=== PATIENT | male | born 1945 | race African-American/Black ===

== ENCOUNTER 2016-12-28 10:50 | Observation (INO) ==
[2016-12-28] MEDS ORDERED: ASPIRIN 325 MG TABLET PO STA (11:42)
--- NOTE | 2016-12-28 11:55 | EKG Report ---
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
--- NOTE | 2016-12-28 12:15 | XRay Report ---
XR chest 1V portable Indication: Chest pain Comparison: None Technique: Single frontal view of the chest. Findings: Heart size within normal limits. Chronic/granulomatous change without focal consolidation, pleural effusion, or pneumothorax. Visualized osseous and surrounding soft tissue structures demonstrate no acute abnormality. IMPRESSION: No acute cardiopulmonary process demonstrated. PROCEDURE INTERPRETED AT [facility] DEPARTMENT OF RADIOLOGY Final Report Signed by: Dr Dalton Metzger
[2016-12-28 12:21] LABS: Basophils % 0.6 % (0.0-0.8); Eosinophils # 0.1 10*3/uL (0.0-0.87); Eosinophils % 0.8 % (0.00-10.9); Hematocrit 41.3 VOL% (42.0-52.0); Hemoglobin 14.6 GM/DL (14.0-18.0); Immature Granulocytes % 0.8 %; Immature Granulocytes Absolute 0.05 #; Lymphocytes # 1.5 10*3/uL (1.4-4.0); Lymphocytes % 23.8 % (21.2-54.2); Mean Corpuscular HGB Conc 35.4 GM/DL (32-36); Mean Corpuscular Hemoglobin 31 PG (27-34); Mean Corpuscular Volume 88.6 FL (87-102); Mean Platelet Volume 9.9 FL (9.6-12.0); Monocytes # 0.6 10*3/uL (0.11-0.8); Monocytes % 9.6 % (1.7-12.7); Neutrophils % 64.4 % (38.7-73.9); Platelet Count 185 T/CUMM (130-400); Red Blood Count 4.66 MC/CUMM (3.8-5.5); Red Cell Distribution Width 12.3 % (9.3-17.3); White Blood Count 6.3 T/CUMM (4-12)
[2016-12-28 12:29] LABS: PT Patient Result 10.7 SECS
[2016-12-28] MEDS ORDERED: ASPIRIN 325 MG TABLET ONE (12:29)
[2016-12-28 12:48] LABS: Albumin 3.8 G/DL (3.4-5.0); Bilirubin,Total 0.9 MG/DL (0.2-1.0); Osmolality,Calculated 274.7 MOS/KG (273-304); Potassium 3.3 MMOL/L (3.5-5.1); Total Protein 7.8 G/DL (6.4-8.3)
--- NOTE | 2016-12-28 13:35 | Emergency Department Note ---
Risa Milian Hilary, am scribing for, and in the presence of, Darren Noyola MD 11:42. Jazmín Milian Phillip K, MD, personally performed the services described in this documentation, ascribed by Sury Lord in my presence, and it is both accurate and complete 335 . Arrival - Arrival Chief Complaint: Abdominal / Flank Pain Stated Complaint: chest pain, SOB ED Nursing Triage Note: C/o abdominal fullness and nausea-onset 10/25/16. States he has been seeing Dr. Marinelli for same c/o and was dx with h pylori. Reports that is is hard for him to breathe when he bends over. Reports that he thinks he is constipated. Mode of Arrival: Ambulatory Limitations: No Limitations Source: Patient, RN Notes Reviewed Time Seen by Provider: 12/28/16 11:23 - History of Present Illness HPI Narrative: Pt is a 71 y/o male presenting to the ED with c/o sob which onset a 2 days ago. Pt states that he had pressure in chest yesterday which caused him to feel light headed and nauseous. Pt denies any medical issues with his heart. He confirms pressure in his chest, weakness, light headed, nausea and SOB but denies fever, cough or abdominal pain. No other complaints or problems stated in the ED. He adds that he has been seeing Dr. Marinelli for same c/o and was dx with h pylori. Onset (ago): day(s) Consistency: constant Severity: moderate Severity scale (1-10): 2 Allergies/Adverse Reactions: Allergies Allergy/AdvReac Type Severity Reaction Status Date / Time No Known Allergies Allergy Verified 12/28/16 11:03 Home Medications: Home Medications Medication Instructions Recorded Confirmed Type Amlodipine Besylate/Benazepril 1 each PO DAILY 12/28/16 12/28/16 History [Amlodipine-Benazepril 5-20 mg] Terazosin HCl 5 mg PO BEDTIME 12/28/16 12/28/16 History Review of System - Review of System 12 point system: reviewed and no additional remarkable complaints except as stated - Review of System Constitutional: Present: weakness. Absent: fever Respiratory: Present: respiratory distress (SOB). Absent: cough Cardiovascular: Present: chest pain Gastrointestinal: Absent: abdominal pain Neurological: Present: weakness Medical,Surgical,& Family Hx - Medical History Cardio: History of: Hypertension - Social History Smoking Status: Never smoker Frequency of Alcohol Use: None Type of Drug Use: None Exam Vital Signs: Vital Signs Temperature 98.2 F 12/28/16 11:19 Pulse Rate 64 12/28/16 13:00 Respiratory Rate 18 12/28/16 13:00 Blood Pressure 139/94 12/28/16 13:00 O2 Sat by Pulse Oximetry 97 12/28/16 13:00 - General General appearance: alert, in no apparent distress - Head Head exam: Present: atraumatic, normocephalic - Eye Eye exam: Present: normal appearance, PERRL, EOMI - ENT ENT exam: Present: mucous membranes moist, TM's normal bilaterally. Absent: mucous membranes dry - Neck Neck exam: Present: full ROM, trachea midline. Absent: tenderness - Chest Chest inspection: Present: symmetric chest wall rise. Absent: tenderness - Respiratory Respiratory exam: Present: normal lung sounds bilaterally. Absent: respiratory distress - Cardiovascular Cardiovascular exam: Present: regular rate, irregular rhythm, normal heart sounds. Absent: murmur, rubs, gallop - Abdominal Exam Abdominal exam: Present: soft, normal bowel sounds. Absent: distention, tenderness - Extremities Exam Extremities exam: Present: full ROM. Absent: tenderness - Back Exam Back exam: Present: full ROM. Absent: tenderness - Neurological Exam Neurological exam: Present: alert, oriented X3, CN II-XII intact. Absent: motor sensory deficit - Psychiatric Psychiatric exam: Present: normal affect, normal mood - Skin Skin exam: Present: warm, dry, intact, normal color. Absent: rash Course Course Narrative: Patient discussed with the hospitalist. Results - Labs CBC & BMP: 12/28/16 11:59 12/28/16 11:59 Lab Results: I have reviewed the patients labs Labs: Laboratory Tests 12/28/16 12/28/16 11:59 11:59 WBC 6.3 RBC 4.66 Hgb 14.6 Hct 41.3 L Plt Count 185 INR 1.0 PT Patient/Control Mix 10.7 Laboratory Tests 12/28/16 12/28/16 11:59 11:59 Sodium 138 Potassium 3.3 L Chloride 105 Carbon Dioxide 28 Glucose 108 H Troponin I < 0.015 Total Protein 7.8 Globulin 4.0 H Albumin/Globulin Ratio 0.9 L Laboratory Tests 12/28/16 11:59 B-Natriuretic Peptide 6 - EKG EKG results: interpreted by ERMD, sinus rhythm (PVCs, nonspecific ST-T changes) - Diagnostic Findings Procedure: Chest x-ray: report reviewed by me (No acute cardiopulmonary process demonstrated) Disposition Clinical Impression: Chest pain, Possible angina Case discussed with: patient Disposition: Still a Patient Condition: Guarded Additional Instructions: Admit to the hospitalist
--- NOTE | 2016-12-28 16:38 | Hospitalist History & Physical ---
<Jerod Lindsey - Last Filed: 12/28/16 16:32> Assessment and Plan - Time spent with patient Time spent with patient: Greater than 30 minutes (1) Chest pain Status: Acute Assessment and plan: EKG, chest x-ray enzymes are negative. Given the patient's age and history of hypertension, he will be admitted for observation. We have ordered an echocardiogram and cardiology consultation for possible stress test in a.m. Current Visit: Yes (2) Hypertension Status: Acute Assessment and plan: Continue home meds. Current Visit: Yes (3) Anxiety Status: Acute Current Visit: Yes History of Present Illness Chief complaint: Chest pain History of present illness: Mr. Bernard is a 71 year old male with a past medical history significant for hypertension who presents to the ED today with complaints of chest pressure on exertion with onset 4 days ago. Patient reports that he was scheduled to have an MRI on last Wednesday by his primary care doctor. Once he arrived at the MRI Center he found himself anxious about having the procedure time. He describes a nervous sweating with associated nausea and vomiting. He notes that this anxiety continued throughout the weekend even when he was take a shower he felt like the ferrari are closing in on him presents to the ED today with the same complaints and a tightness in his chest. He denies any history of heart disease, myocardial infarction, tobacco use. Cardiac enzymes are negative. Chest x-ray is negative for any acute process. Patient's daughter is at bedside and notes that the patient is recently retired and has been anxious about not having any work lately. This may very well be a case of anxiety, however, given the patient's age and history of hypertension he will be prudent to admit him for observation and thorough cardiac workup. Case has been discussed with Dr. Ambrosio and the patient will be admitted for observation and further evaluation. He is listed as a full code. Home meds have been reviewed and reconciled. Home Medications Medication Instructions Recorded Confirmed Type Amlodipine Besylate/Benazepril 1 each PO DAILY 12/28/16 12/28/16 History [Amlodipine-Benazepril 5-20 mg] Terazosin HCl 5 mg PO BEDTIME 12/28/16 12/28/16 History Allergies Allergy/AdvReac Type Severity Reaction Status Date / Time No Known Allergies Allergy Verified 12/28/16 11:03 Medical,Surgical,& Family Hx - Medical History Cardio: History of: Hypertension Gastrointestinal: History of: GI Problems (H pyloria) - Family History Family History: Reports;: Family Hypertension - Social History Smoking Status: Never smoker Frequency of Alcohol Use: None Type of Drug Use: None Marital Status: Single Lives With:: Alone Functional capacity: independent ambulation 12 point system: reviewed and no additional remarkable complaints except as stated Exam - Constitutional Vitals: Period Temp Pulse Resp BP Sys/Hayward Pulse Ox Last 24 Hr 97.7 F-98.2 F 56-89 14-18 134-163/80-96 95-98 Exam: General appearance: overweight, no acute distress - Head Head exam: Present: normocephalic, atraumatic - Eye Eye exam: Present: EOMI. Absent: conjunctival injection, nystagmus Pupils: Present: MAREN, normal accommodation - ENT ENT exam: Present: normal exam, normal external ear exam - Neck Neck exam: Present: normal inspection. Absent: lymphadenopathy, tenderness, thyromegaly - Respiratory Respiratory exam: Present: clear to auscultation bilaterally. Absent: rales, rhonchi, wheezes - Cardiovascular Cardiovascular exam: Present: regular rate and rhythm. Absent: carotid bruit, gallop, rubs - GI/Abdominal GI/Abdominal exam: Present: normal bowel sounds. Absent: ascites, distended, mass - Extremities Exam Extremities exam: Present: normal inspection, normal capillary refill. Absent: edema - Back Exam Back exam: Absent: CVA tenderness (L), CVA tenderness (R) - Neurological Exam Neurological exam: Present: alert, oriented X3, CN II-XII intact, reflexes normal - Psychiatric Psychiatric exam: Present: normal affect, normal mood - Skin Skin exam: Present: normal color, warm, dry Results - Labs CBC & BMP: 12/28/16 11:59 12/28/16 11:59 Lab Results: I have reviewed the past 24 hour labs - EKG EKG results: interpreted by ERMD - Diagnostic Findings Procedure: Chest x-ray: image reviewed by me, report reviewed by me <Gorge Garza - Last Filed: 12/28/16 20:04> History of Present Illness History of present illness: Mr. Bernard is a 71 year old male Exam - Constitutional Vitals: Period Temp Pulse Resp BP Sys/Hayward Pulse Ox Last 24 Hr 97.7 F-98.2 F 56-89 14-18 134-163/80-96 95-98 Results - Labs CBC & BMP: 12/28/16 11:59 12/28/16 11:59
[2016-12-28 20:31] LABS: Risk Ratio 5.43; VLDL CHOLESTEROL 40.8 MG/DL
[2016-12-28] MEDS: TERAZOSIN 5 MG CAPSULE PO SCH (21:38)
[2016-12-28] MEDS: CLORAZEPATE 3.75 MG TABLET PO PRN (21:38)
[2016-12-29 05:38] LABS: Calcium 8.5 MG/DL (8.5-10.1); Osmolality,Calculated 282.1 MOS/KG (273-304); Potassium 3.5 MMOL/L (3.5-5.1)
--- NOTE | 2016-12-29 08:11 | EKG Report ---
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
[2016-12-29] MEDS: POTASSIUM CHLORIDE 20 MEQ TABLET PO SCH (09:24)
[2016-12-29] MEDS: ASPIRIN EC 81 MG TABLET PO SCH (09:24)
--- NOTE | 2016-12-29 10:12 | Cardiology Consult Note ---
<Keisha Crowder E - Last Filed: 12/29/16 11:30> Assessment and Plan - Time spent with patient Time spent with patient: Greater than 30 minutes (due to assessment, plan, and documentation) (1) Chest pain Status: Acute Assessment and plan: See plan of care listed below. Current Visit: Yes (2) Dyspnea on exertion Status: Acute Assessment and plan: See plan of care listed below. Current Visit: Yes (3) Anxiety Status: Acute Assessment and plan: See plan of care listed below. Current Visit: Yes (4) Hypertension Status: Chronic Assessment and plan: See plan of care listed below. Current Visit: Yes (5) Hyperlipidemia Status: Acute Assessment and plan: See plan of care listed below. Current Visit: Yes (6) Former tobacco use Status: Chronic Assessment and plan: See plan of care listed below. 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 Morelos (02/13) PCP: Dr. Darien Marinelli Mr. Bernard is a 71 year old male with risk factors significant for: age, hypertension, hyperlipidemia, former smoker. He tells me that he smoked for 15 years but quit 40 years ago. He denies a history of diabetes, stroke, or seizure. He recently retired in September 2016. He has a brother who had a CABG in his 70s. Mr. Bernard presented to the emergency room with complaints of chest pain. This began last week when he was supposed to undergo a cervical MRI for right hand tingling and numbness. Once arriving for the MRI, he became anxious, nervous, diaphoretic, and had nausea and vomiting and was unable to have his MRI. Throughout the weekend, this seemed to worsen. He had bouts of anxiety whenever he was in closed spaces and felt as though the ferrari were closing in whenever he was in the shower. His is at the bedside and reports that he became anxious when she closed the blinds in his hospital room. She tells me that back in September, he did some work underneath their house and had a similar episode and informed his that he felt like he was suffocating. He describes this pain in his chest as being a tightness and a pressure, "like gas" he states. It is substernal in location and mild to moderate in severity. It is nonreproducible. He has also noticed being more "winded" and fatigued recently and his reports that she has noticed this as well. He tells me that at times he finds it is difficult to catch his breath. Rest seems to help. He can identify no other exacerbating factors. He does tell me that he walks a mile most days of the week and usually has no difficulties with this. Upon arrival, his cardiac biomarkers have been negative and EKG shows sinus rhythm with nonspecific ST-T changes. Echocardiogram is pending. Lipid panel revealed triglycerides 204, cholesterol 228, LDL 142, HDL 42. Potassium is 3.5, creatinine 0.9, magnesium 2.2. ASSESSMENT/PLAN: 1. CHEST PAIN - His chest discomfort seems to be more closely related to his anxiety; however, after discussing with Dr. Morelos, given his age, history, and atypical symptoms, we will proceed with nuclear stress testing today. We will keep him NPO. 2. DYSPNEA ON EXERTION - Certainly this could have an anginal equivalent. He reports being more winded and fatigued over the past several months but is still able to walk 1 mile several days a week at a brisk pace without significant exertional symptoms. 3. ANXIETY - He has recently retired and not having much to do seems to have exacerbated his recent onset of anxiety. 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 4. HYPERTENSION - Currently well controlled on current therapy. Will continue to monitor and adjust accordingly. 5. HYPERLIPIDEMIA - Denies a past history of hyperlipidemia; however lipid panel revealed triglycerides 204, cholesterol 228, LDL 142, HDL 42. We will start lipid-lowering agent. 6. FORMER TOBACCO USE - quit smoking 40 years ago. CC: Martha Hennessy MD - Home Medications and Allergies Home Medications: Home Medications Medication Instructions Recorded Confirmed Type Amlodipine Besylate/Benazepril 1 each PO DAILY 12/28/16 12/28/16 History [Amlodipine-Benazepril 5-20 mg] Terazosin HCl 5 mg PO BEDTIME 12/28/16 12/28/16 History Allergies/Adverse Reactions: Allergies Allergy/AdvReac Type Severity Reaction Status Date / Time No Known Allergies Allergy Verified 12/28/16 11:03 Review of systems: - Constitutional: Present: fatigue, As per HPI. Absent: anorexia, chills, daytime sleepiness, excessive sweating, fever(s), frequent falls, headache(s), increased appetite, lethargy, malaise, night sweats, stops breathing during sleep, weakness, weight gain, weight loss. - EENT Eyes: Present: As per HPI. Absent: blurry vision, diplopia, loss of vision Ears: Present: As per HPI. Absent: decreased hearing, ear discharge, ear pain Nose, mouth and throat: Present: As per HPI. Absent: dysphagia, epistaxis, headache(s), hoarseness, lip swelling, nasal congestion, neck mass, neck pain, sinus pressure, sore throat, throat swelling, tongue swelling, vertigo - Cardiovascular: Present: chest pain at rest, dyspnea on exertion, diaphoresis , as per HPI. Absent: chest pain with activity, dyspnea, edema, claudication, radiating jaw, neck or arm pain, lightheadedness, orthopnea, palpitations, PND - Respiratory: Present: mild dyspnea on exertion, snoring, as per HPI. Absent: dyspnea, cough, hemoptysis, wheezing, pain on inspiration - Gastrointestinal: Present: As per HPI. Absent: abdominal pain, bloating, change in bowel habits, constipation, diarrhea, heartburn, hematemesis, hematochezia, loose stools, melena, nausea, vomiting - Genitourinary: Present: As per HPI. Absent: difficulty urinating, dysuria, flank pain, hematuria, nocturia, urinary frequency, urinary incontinence - Musculoskeletal: Present: As per HPI. Absent: arthralgias, back pain, joint swelling, limited range of motion, muscle cramps, muscle weakness, myalgias - Neurological: Present: As per HPI. Absent: abnormal gait, abnormal speech, behavioral changes, confusion, convulsions, disequilibrium, dizziness, focal weakness, frequent falls, headache(s), memory loss, numbness, paresthesias, radicular pain, syncope, tremor(s) - Psychiatric: Present: As per HPI. Absent: anxiety, confusion, depression, panic attacks - Endocrine: Present: fatigue, As per HPI. Absent: cold intolerance, heat intolerance, polydipsia, polyphagia - Hematologic/Lymphatic: Present: As per HPI. Absent: easy bleeding, easy bruising, lymphadenopathy Medical,Surgical,& Family Hx - Medical History Cardio: History of: Hypertension Endocrine: History of: Dyslipidemia Gastrointestinal: History of: GI Problems (H pyloria) - Family History Family History: Reports;: Family Hypertension - Social History Smoking Status: Never smoker Frequency of Alcohol Use: None Type of Drug Use: None Marital Status: Lives With:: Spouse Functional capacity: independent ambulation Physical Examination Vital Signs Temp Pulse Resp BP Pulse Ox 98.2 F 89 18 155/96 97 12/28/16 10:58 12/28/16 10:58 12/28/16 10:58 12/28/16 10:58 12/28/16 10:58 Exam: General appearance: Pleasant and cooperative. Overweight, no acute distress. - Head Head exam: Present: normal inspection, normocephalic, atraumatic. Absent: hematoma, laceration - Eye Eye exam: Present: EOMI. Absent: conjunctival injection, nystagmus, periorbital swelling, scleral icterus, laceration to eyelids Pupils: Present: PERRL. Absent: constricted, dilated, fixed, irregular, unequal - ENT ENT exam: Present: normal exam, normal external ear exam - Neck Neck exam: Present: normal inspection. Absent: lymphadenopathy, meningismus, tenderness, thyromegaly, carotid bruit - Respiratory Respiratory exam: Present: clear to auscultation bilaterally. Absent: accessory muscle use, chest wall tenderness, rales, rhonchi, wheezing. - Cardiovascular Cardiovascular exam: Present: regular rate and rhythm. Systolic murmur, best appreciated at apex with radiation to L axilla. Absent: gallop, rubs - GI/Abdominal GI/Abdominal exam: Present: normal bowel sounds, soft. Absent: distended, firm , guarding, hernia, mass, tenderness, rebound. - Extremities Exam Extremities exam: Present: normal inspection, normal capillary refill. Upper extremity pulses 2+. Lower extremity pulses 2+. Absent: calf tenderness, edema -Musculoskeletal Exam Musculoskeletal: Present: No Fluid Collection, No Pain, Normal Range of Motion - Back Exam Back exam: Present: normal inspection. Absent: muscle spasm, vertebral tenderness - Neurological Exam Neurological exam: Present: alert, oriented X3, grossly intact without resting or essential tremor - Psychiatric Psychiatric exam: Present: normal affect, normal mood - Skin Skin exam: Present: normal color, warm, dry, intact. Absent: cyanosis, diaphoretic, rash, urticaria Result/EKG - Labs CBC & BMP: 12/28/16 11:59 12/29/16 04:24 Lab Results: I have reviewed the past 24 hour labs Labs: Laboratory Results - last 24 hr 12/28/16 12/28/16 12/28/16 11:43 11:59 11:59 WBC 6.3 RBC 4.66 Hgb 14.6 Hct 41.3 L MCV 88.6 MCH 31 MCHC 35.4 RDW 12.3 Plt Count 185 MPV 9.9 Neut % (Auto) 64.4 Lymph % (Auto) 23.8 Mchenry % (Auto) 9.6 Eos % (Auto) 0.8 Baso % (Auto) 0.6 Neut # (Auto) 4.0 Lymph # (Auto) 1.5 Mchenry # (Auto) 0.6 Eos # (Auto) 0.1 Baso # (Auto) 0.0 Immature Gran % 0.8 Nucleated RBC % 0.0 Immature Gran # 0.05 Nucleated RBCs # 0.00 Immature Plt Fraction 0.0 INR PT Patient/Control Mix Sodium 138 Potassium 3.3 L Chloride 105 Carbon Dioxide 28 Anion Gap 8.3 BUN 10 Creatinine 1.00 GFR Calculation 107 BUN/Creatinine Ratio 10.00 Glucose 108 H POC Glucose Calculated Osmolality 274.7 Calcium 9.0 Magnesium 2.2 Total Bilirubin 0.90 AST 16 ALT 25 Alkaline Phosphatase 63 Troponin I B-Natriuretic Peptide Total Protein 7.8 Albumin 3.8 Globulin 4.0 H Albumin/Globulin Ratio 0.9 L Triglycerides Cholesterol LDL Cholesterol VLDL Cholesterol HDL Cholesterol Heart Disease Risk Ratio 12/28/16 12/28/16 12/28/16 11:59 11:59 11:59 WBC RBC Hgb Hct MCV MCH MCHC RDW Plt Count MPV Neut % (Auto) Lymph % (Auto) Mchenry % (Auto) Eos % (Auto) Baso % (Auto) Neut # (Auto) Lymph # (Auto) Mchenry # (Auto) Eos # (Auto) Baso # (Auto) Immature Gran % Nucleated RBC % Immature Gran # Nucleated RBCs # Immature Plt Fraction INR 1.0 PT Patient/Control Mix 10.7 Sodium Potassium Chloride Carbon Dioxide Anion Gap BUN Creatinine GFR Calculation BUN/Creatinine Ratio Glucose POC Glucose Calculated Osmolality Calcium Magnesium Total Bilirubin AST ALT Alkaline Phosphatase Troponin I < 0.015 B-Natriuretic Peptide 6 Total Protein Albumin Globulin Albumin/Globulin Ratio Triglycerides Cholesterol LDL Cholesterol VLDL Cholesterol HDL Cholesterol Heart Disease Risk Ratio 12/28/16 12/28/16 12/28/16 15:48 18:50 19:00 WBC RBC Hgb Hct MCV MCH MCHC RDW Plt Count MPV Neut % (Auto) Lymph % (Auto) Mchenry % (Auto) Eos % (Auto) Baso % (Auto) Neut # (Auto) Lymph # (Auto) Mchenry # (Auto) Eos # (Auto) Baso # (Auto) Immature Gran % Nucleated RBC % Immature Gran # Nucleated RBCs # Immature Plt Fraction INR PT Patient/Control Mix Sodium Potassium Chloride Carbon Dioxide Anion Gap BUN Creatinine GFR Calculation BUN/Creatinine Ratio Glucose POC Glucose 117 H Calculated Osmolality Calcium Magnesium Total Bilirubin AST ALT Alkaline Phosphatase Troponin I < 0.015 < 0.015 B-Natriuretic Peptide Total Protein Albumin Globulin Albumin/Globulin Ratio Triglycerides Cholesterol LDL Cholesterol VLDL Cholesterol HDL Cholesterol Heart Disease Risk Ratio 12/28/16 12/29/16 19:00 04:24 WBC RBC Hgb Hct MCV MCH MCHC RDW Plt Count MPV Neut % (Auto) Lymph % (Auto) Mchenry % (Auto) Eos % (Auto) Baso % (Auto) Neut # (Auto) Lymph # (Auto) Mchenry # (Auto) Eos # (Auto) Baso # (Auto) Immature Gran % Nucleated RBC % Immature Gran # Nucleated RBCs # Immature Plt Fraction INR PT Patient/Control Mix Sodium 142 Potassium 3.5 Chloride 107 Carbon Dioxide 28 Anion Gap 10.5 BUN 9 Creatinine 0.90 GFR Calculation 121 BUN/Creatinine Ratio 10.00 Glucose 108 H POC Glucose Calculated Osmolality 282.1 Calcium 8.5 Magnesium Total Bilirubin AST ALT Alkaline Phosphatase Troponin I B-Natriuretic Peptide Total Protein Albumin Globulin Albumin/Globulin Ratio Triglycerides 204 H Cholesterol 228 H LDL Cholesterol 142.0 VLDL Cholesterol 40.8 HDL Cholesterol 42 Heart Disease Risk Ratio 5.43 - EKG EKG results: interpreted by me, sinus rhythm <Annie Morelos - Last Filed: 12/29/16 17:28> History of Present Illness - Consult Narrative History of present illness: I have personally interviewed and evaluated the patient, reviewed the chart and discussed medical decision-making with practitioner Vel. I have read this note and agree with her documentation here in With the following additions and clarifications: In general his cardiac symptoms are atypical of ischemia. I reviewed his stress test and it is negative for ischemia. However, he has a murmur consistent with mitral regurgitation, echocardiogram confirms moderate to severe mitral regurgitation. He also has significant PVCs. These are likely contributing to his symptoms, and sometimes can masquerade a symptoms of anxiety. I am going to adjust his antihypertensive regimen to maximize beta blockade and afterload reduction with VIVIEN inhibitor. He will get a 30 day event monitor at discharge. I will repeat his echo in approximately 3 months when his blood pressure is optimally controlled to reevaluate the severity of mitral regurgitation. From a cardiac standpoint he is stable for discharge and can follow-up with me in clinic in 6 weeks after his 30 day event monitor is complete. CC: Martha Hennessy MD Physical Examination Vital Signs Temp Pulse Resp BP Pulse Ox 98.2 F 89 18 155/96 97 12/28/16 10:58 12/28/16 10:58 12/28/16 10:58 12/28/16 10:58 12/28/16 10:58 Result/EKG - Labs CBC & BMP: 12/28/16 11:59 12/29/16 04:24 Labs: Laboratory Results - last 24 hr 12/28/16 12/28/16 12/28/16 18:50 19:00 19:00 Sodium Potassium Chloride Carbon Dioxide Anion Gap BUN Creatinine GFR Calculation BUN/Creatinine Ratio Glucose POC Glucose 117 H Calculated Osmolality Calcium Troponin I < 0.015 Triglycerides 204 H Cholesterol 228 H LDL Cholesterol 142.0 VLDL Cholesterol 40.8 HDL Cholesterol 42 Heart Disease Risk Ratio 5.43 12/29/16 04:24 Sodium 142 Potassium 3.5 Chloride 107 Carbon Dioxide 28 Anion Gap 10.5 BUN 9 Creatinine 0.90 GFR Calculation 121 BUN/Creatinine Ratio 10.00 Glucose 108 H POC Glucose Calculated Osmolality 282.1 Calcium 8.5 Troponin I Triglycerides Cholesterol LDL Cholesterol VLDL Cholesterol HDL Cholesterol Heart Disease Risk Ratio
--- NOTE | 2016-12-29 13:10 | Event Note ---
Mr. Bernard underwent Cardiolite stress testing today without difficulty. He was noted to have some ST depression, more prominent on prestress test EKG then EKG from this morning which did not significantly change during stress testing. He had frequent PVCs throughout stress testing. Blood pressure responded appropriately. He had no chest pain, heaviness, or tightness. No dizziness, lightheadedness, or syncope. He had mild ZHENG. Patient now to nuclear medicine for final scan. Dr. Morelos to read, interpret, and advise.
--- NOTE | 2016-12-29 16:39 | Hospitalist Progress Note ---
Assessment and Plan (1) Chest pain Status: Acute Assessment and plan: Follow-up nuclear medicine scan Current Visit: Yes (2) Hypertension Status: Chronic Current Visit: Yes Qualifiers: Hypertension type: essential hypertension Qualified Code(s): I10 - Essential (primary) hypertension (3) Anxiety Status: Acute Current Visit: Yes Hospitalist: Subjective Interval history: Patient seen and examined. No acute events overnight. Case discussed with nursing staff. Labs reviewed. Family at the bedside. Patient reports anxiety with MRI testing. Exam - Constitutional Vitals: Period Temp Pulse Resp BP Sys/[place]ward Pulse Ox Last 24 Hr 96.3 F-97.6 F 53-83 16-20 129-160/72-96 94-95 Exam: Constitutional System: No distress. No tremulousness. Head: Normocephalic, atraumatic. Ears, Nose and Throat System: No pain or tenderness. No epistaxis or discharge Eyes System: Pupils equal, round, and reactive. Extraocular muscles intact. Neck: Supple, without adenopathy, No jugular venous distention. No thyromegaly, neck mass, or prior surgery apparent. Respiratory System: Chest clear to auscultation. Cardiovascular System: Heart with regular rate and rhythm. No murmur. GI System: Abdomen soft, nontender. Normo active bowel sounds present. Musculoskeletal System: limbs with no pedal edema. Full distal pulses. Neurological System: No discernable sensory deficit. No aphasia Psychiatric System: Conversation is rational Results - Labs CBC & BMP: 12/28/16 11:59 12/29/16 04:24 Lab Results: I have reviewed the past 24 hour labs Specialty Discharge - Follow Up or Referrals
--- NOTE | 2016-12-29 17:05 | ECHO Report ---
Alexander Bernard Exam Date: 12/29/2016 09:30 Referring Physician: Technologist: lCaire Steele Age: 71 Ht (in): 71 Wt (lb): 200 Gender: M Exam Location: [facility] Echo Indications: Chest pain, HTN, anxiety, SOB BP: 129 / 90 HR: 73 Rhythm: Sinus Technical Quality: Fair IMPRESSIONS Normal LV systolic function, ejection fraction 55% Grade 1/4 diastolic dysfunction Moderate concentric left ventricular hypertrophy Mild left atrial enlargement Moderate to severe mitral regurgitation Trace tricuspid and aortic regurgitation MEASUREMENTS (Male / Female) Normal Values 2D ECHO LV Diastolic Diameter PLAX 4.6 cm 4.2 - 5.9 / 3.9 - 5.3 cm LV Systolic Diameter PLAX 2.8 cm LV Fractional Shortening PLAX 39.5 % IVS Diastolic Thickness 1.6 cm 0.6 - 1.0 / 0.6 - 0.9 cm LVPW Diastolic Thickness 1.4 cm 0.6 - 1.0 / 0.6 - 0.9 cm Aortic Root Diameter 2.9 cm LA Systolic Diameter LX 3.6 cm 3.0 - 4.0 / 2.7 - 3.8 cm DOPPLER TR Peak Velocity 217.0 cm/s TR Peak Gradient 18.8 mmHg FINDINGS Left Ventricle Normal left ventricular cavity size. Mild concentric left ventricular hypertrophy with mild - moderate diastolic dysfunction. Left ventricular ejection fraction is estimated at 55 %. Right Ventricle Normal right ventricular size. Right Atrium Normal right atrial size. Left Atrium The left atrium is mildly enlarged. Mitral Valve Moderate to severe mitral regurgitation. Aortic Valve aortic valve sclerosis without stenosis. Trace aortic valve regurgitation. Tricuspid Valve Morphologically normal tricuspid valve. Trace tricuspid valve regurgitation. Tricuspid regurgitation velocities suggest a PAP of 18.8 mmHg + RAP. Pulmonic Valve Morphologically normal pulmonic valve. Pericardium No pericardial effusion. Aorta Normal size aortic root and proximal ascending aorta. Annie Morelos MD (Electronically Signed) Final Date: 29 December 2016 17:03
--- NOTE | 2016-12-29 17:29 | Nuclear Medicine Report ---
EXERCISE CARDIOLITE DATE OF STUDY: 12/29/2016 REFERRING: Martha Taveras M.D. INTERPRETING: Annie Morelos M.D. INDICATION: A 71-year-old male with chest discomfort, shortness of breath. PROCEDURE: The patient underwent exercise stress testing per protocol. A 10 mCi of Technetium-99 we re injected for rest imaging. Subsequently, the patient was exercised per Will protocol achieving a maximum heart rate of 134 beats per minute (89% maximum predicated heart rate) and 4.7 METS. Blood pressure was 152/80. EKG interpretation was supervised and provided by practitioner Vel, reviewed by me. The patient had premature ventricular contractions, baseline mild ST depression without changes during exercise, and no chest pain. This rendered the test clinically negative, electrically nondiagnostic. SPECT images were obtained in the short axis, horizontal and vertical long axis with gating. Ejectio n fraction is 62%. End-diastolic volume is 100 mL, end-systolic volume is 37 mL. Stroke volume is 6 2 mL. Overall wall motion is grossly normal. At rest, there is a moderate extent, severe intensity perfusion defect in the basal to mid inferior wall. With stress imaging, the inferior wall perfusion defect persists, although it is less intense, only mild to moderate in intensity. On review of cine images, there is significant diaphragmatic attenuation corresponding with the defect seen. IMPRESSIONS: 1. NORMAL LEFT VENTRICULAR SYSTOLIC FUNCTION. 2. NORMAL CHRONOTROPIC RESPONSE TO EXERCISE. 3. RESTING BASAL TO MID INFERIOR WALL PERFUSION DEFECT AND IMPROVED SLIGHTLY WITH STRESS WHEN COMPAR ED TO REST AND APPEARS TO CORRELATE WITH DIAPHRAGMATIC ATTENUATION. 4. NO GROSS NUCLEAR EVIDENCE OF REVERSIBLE ISCHEMIA. Procedure performed and interpreted at [facility] Department of Radiology.
[2016-12-29] MEDS ORDERED: ROSUVASTATIN 20 MG TABLET PO SCH (21:00)
[2016-12-29] MEDS: CLORAZEPATE 3.75 MG TABLET PO PRN (21:11)
[2016-12-29] MEDS: TERAZOSIN 5 MG CAPSULE PO SCH (21:12)
[2016-12-30 05:17] LABS: Basophils # 0.1 10*3/uL (0.0-0.2); Eosinophils # 0.2 10*3/uL (0.0-0.87); Eosinophils % 3.5 % (0.00-10.9); Hematocrit 42.5 VOL% (42.0-52.0); Hemoglobin 14.7 GM/DL (14.0-18.0); Immature Granulocytes % 0.3 %; Immature Granulocytes Absolute 0.02 #; Lymphocytes % 43.1 % (21.2-54.2); Mean Corpuscular HGB Conc 34.6 GM/DL (32-36); Mean Corpuscular Hemoglobin 31 PG (27-34); Mean Corpuscular Volume 89.7 FL (87-102); Monocytes # 0.7 10*3/uL (0.11-0.8); Monocytes % 10.2 % (1.7-12.7); Neutrophils # 2.9 10*3/uL (1.4-7.4); Neutrophils % 41.9 % (38.7-73.9); Platelet Count 172 T/CUMM (130-400); Red Blood Count 4.74 MC/CUMM (3.8-5.5); Red Cell Distribution Width 12.4 % (9.3-17.3); White Blood Count 6.8 T/CUMM (4-12)
[2016-12-30 05:44] LABS: Calcium 8.5 MG/DL (8.5-10.1); Magnesium 2.4 MG/DL (1.8-2.4); Osmolality,Calculated 277.4 MOS/KG (273-304); Potassium 3.7 MMOL/L (3.5-5.1)
--- NOTE | 2016-12-30 07:21 | Discharge Summary ---
<Jerod Lindsey - Last Filed: 12/30/16 07:17> Hospital Course - Hospital Course Hospital Course: Mr. Bernard is a 71-year-old -[place] male with past medical history significant for hypertension who presented to the emergency room on 12/28/2016 with complaints of chest pressure on exertion having onset 4 days prior. Patient was experiencing what appeared to be several bouts of anxiety associated with claustrophobia after having to be assessed by MRI. On admission , the patient was noted to have a substantial murmur to auscultation. Given the patient's age and other risk factors, he was admitted to telemetry through the hospital medicine service for further evaluation with cardiology consultation. Echocardiogram revealed normal LV systolic function with an ejection fraction estimated to be 55%. The patient does have moderate concentric left ventricular hypertrophy, mild left atrial enlargement with evidence of moderate to severe mitral regurgitation and trace tricuspid and aortic regurgitation. Dr. Morelos, cardiology, assessed the patient and found his symptoms to be atypical of ischemia. His cardiac stress test is negative for ischemia. EKG did show significant PVCs which could likely contribute to his symptoms, sometimes masquerading as anxiety. She recommends adjusting his antihypertensive regimen to maximize beta blockade and afterload reduction with VIVIEN inhibitor. The patient will receive a 30 day event monitor at discharge with a scheduled repeat echocardiogram in approximately 3 months. Patient to follow-up with Dr. Bose in her clinic 6 weeks after his 30 day event monitor is complete. At this time, the patient has reached maximum benefit from hospitalization and stable for discharge. The patient is instructed to proceed to the [facility] office after discharge to bulk picker his event recorder. The case was discussed with cardiology on rounds. The patient's is present at the time of my evaluation and they both verbalized their understanding. He plans to reschedule his outpatient MRI through his primary care physician in [place] Dr. Marinelli. I have advised him to consider open MRI versus traditional MRI due to his claustrophobia and anxiety. His home medications were reviewed and reconciled. Patient will follow up with cardiology as above. I have personally seen and examined this patient today. I agree with the above note as prepared by the advanced practice provider. I agree with the assessment and plan. - Time spent with patient Time with patient DS: Greater than 30 minutes Diagnosis - Discharge Diagnosis (1) Chest pain Status: Acute (2) Hypertension Status: Chronic (3) Anxiety Status: Acute Specialty Discharge - Follow Up or Referrals Follow up with: Annie Morelos MD [Physician] - 1 Month Discharge Plan - Discharge Data Disposition: Disch To Home/Self Care - Discharge Medications New Lisinopril [Prinivil] 20 mg PO DAILY #30 tablet Metoprolol Succinate Xl [Toprol Xl] 25 mg PO DAILY #30 tablet Rosuvastatin [Crestor] 20 mg PO BEDTIME #30 tablet Aspirin EC Tab 81 mg PO DAILY tablet Clorazepate [Tranxene] 3.75 mg PO Q8HR PRN #20 tablet PRN Reason: Anxiety Continue Terazosin HCl 5 mg PO BEDTIME Discontinued Amlodipine Besylate/Benazepril [Amlodipine-Benazepril 5-20 mg] 1 each PO DAILY - Follow Up or Referral Follow Up: Annie Morelos MD [Physician] - 1 Month - Forms/Instructions Instructions: Chronic Hypertension (DC) Exam - Constitutional Vitals: Period Temp Pulse Resp BP Sys/[place] Pulse Ox Last 24 Hr 96.8 F-97.5 F 61-88 18-20 113-162/69-96 94-97 Discharge Results Procedures and tests throughout hospitalization: Pending Orders 12/31/16 04:00 BMP w/ Mg [Basic Metabolic Panel w/Mg] IN AM Comp Blood Count Auto Diff IN AM Labs on day of discharge: Labs from last 24 hours 12/30/16 12/30/16 04:43 04:43 WBC 6.8 RBC 4.74 Hgb 14.7 Hct 42.5 MCV 89.7 MCH 31 MCHC 34.6 RDW 12.4 Plt Count 172 MPV 10.0 Neut % (Auto) 41.9 Lymph % (Auto) 43.1 [place] % (Auto) 10.2 Eos % (Auto) 3.5 Baso % (Auto) 1.0 H Neut # (Auto) 2.9 Lymph # (Auto) 3.0 [place] # (Auto) 0.7 Eos # (Auto) 0.2 Baso # (Auto) 0.1 Immature Gran % 0.3 Nucleated RBC % 0.0 Immature Gran # 0.02 Nucleated RBCs # 0.00 Immature Plt Fraction 0.0 Sodium 140 Potassium 3.7 Chloride 105 Carbon Dioxide 28 Anion Gap 10.7 BUN 11 Creatinine 1.00 GFR Calculation 107 BUN/Creatinine Ratio 11.00 Glucose 106 Calculated Osmolality 277.4 Calcium 8.5 Magnesium 2.4 DS: Provider Date of admission: 12/28/16 13:38 Primary care physician: . No PCP Attending physician on admission: Iglesia Ambrosio MD Consults: 12/28/16 16:45 Consult to Physician [CONS] Routine Comment: chest pain Consulting Provider: Cardiology - [facility] Person Notified: fanta Date Notified: 12/28/16 Time Notified: 17:14 Consult Notification Comment: called [facility] notified 12/29 7:55 a.m Spoke w/ Claire Discharging clinician: Jerod PEACE Expected date of discharge: 12/30/16 <Martha Hennessy - Last Filed: 12/30/16 10:49> Hospital Course - Time spent with patient Time with patient DS: Greater than 30 minutes (Total discharge time for this patient, including [id number] time, clinical documentation, medication reconciliation, and discharge planning was 42 minutes.) Diagnosis - Discharge Diagnosis (1) Chest pain Status: Acute (2) Hypertension Status: Chronic (3) Anxiety Status: Acute (4) Mitral regurgitation Status: Acute Discharge Plan - Discharge Data Condition at Discharge: Stable Discharge Diet: advance to your usual diet Activity: resume usual activities as tolerated Hygiene: no restrictions Contact your physician if you experience:: Nausea/Vomiting, Shortness of breath , pain uncontrolled by pain medications
[2016-12-30 07:47] VITALS: BP 142/79
[2016-12-30] MEDS: ASPIRIN EC 81 MG TABLET PO SCH (08:21)
[2016-12-30] MEDS: POTASSIUM CHLORIDE 20 MEQ TABLET PO SCH (08:22)
[2016-12-30] MEDS ORDERED: LISINOPRIL 20 MG TABLET PO SCH (09:00)
[2016-12-30] MEDS ORDERED: METOPROLOL SUCCINATE XL 25 MG TABLET PO SCH (09:00)
== END 2016-12-30 11:50 | disposition home or self-care (01) ==
LOC: N.ED 10:50 → N.EDINP 10:50 → SUATTDRO 13:38 → N.TELES 15:07
PROVIDERS: ADMIT Internal Medicine; ATTEND Family Medicine